=== PATIENT | male | born 1965 | race Caucasian/White ===

== ENCOUNTER 2016-12-02 11:45 | Inpatient (IN) | payer OTHER ==
[2016-12-02 12:16] LABS: ABSOLUTE EOSINOPHILS # (AUTO) 0.1 10^3/uL (0.0-0.6); ABSOLUTE LYMPHOCYTES (AUTO) 1.9 10^3/uL (0.5-4.7); ABSOLUTE MONOCYTES (AUTO) 0.5 10^3/uL (0.1-1.4); ABSOLUTE NEUT (AUTO) 4.5 10^3/uL (1.7-8.2); BASOPHILS % (AUTO) 0.6 % (0-2); EOSINOPHILS % (AUTO) 1.7 % (0-6); HEMATOCRIT 42.2 % (37.9-51.0); HEMOGLOBIN 14.2 g/dL (13.5-17.0); HGB HCT DIFFERENCE 0.4; LYMPHOCYTES % (AUTO) 26.7 % (13-45); MEAN CORPUSCULAR HEMOGLOBIN 31.6 pg (27.0-33.4); MEAN CORPUSCULAR HGB CONC 33.6 g/dL (32.0-36.0); MEAN CORPUSCULAR VOLUME 94 fl (80-97); MONOCYTES % (AUTO) 6.7 % (3-13); RED BLOOD COUNT 4.47 10^6/uL (4.35-5.55); RED CELL DISTRIBUTION WIDTH 13.5 % (11.5-14.0); SEGMENTED NEUTROPHILS % (AUTO) 64.3 % (42-78)
[2016-12-02 12:25] LABS: PARTIAL THROMBOPLASTIN TIME 23.5 SEC (23.5-35.8)
[2016-12-02 12:38] LABS: ALCOHOL 22 mg/dL (NONE DETECTED); ANION GAP 9 (5-19); BLOOD UREA NITROGEN 14 mg/dL (7-20); CALCIUM 8.3 mg/dL (8.4-10.2); CARBON DIOXIDE 23 mmol/L (22-30); CHLORIDE 113 mmol/L (98-107); CREATININE RESULT 0.92 mg/dL (0.52-1.25); GLUCOSE 108 mg/dL (75-110); POTASSIUM 4.7 mmol/L (3.6-5.0); SODIUM 144.7 mmol/L (137-145)
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
[2016-12-02] MEDS ORDERED: KETAMINE HCL INJ 500 MG/10 ML VIAL IV ONE (13:36)
[2016-12-02] MEDS ORDERED: MIDAZOLAM 2 MG/2 ML INJ IV ONE (13:36)
[2016-12-02] MEDS ORDERED: HYDROMORPHONE HCL INJ/PF 2 MG/ML AMPULE IV ONE (13:48)
[2016-12-02] MEDS ORDERED: NORMAL SALINE 1000 ML 1,000 ML IV ONE (13:48)
[2016-12-02] MEDS ORDERED: ONDANSETRON HCL INJ/PF 4 MG/2 ML SDV IV ONE (13:48)
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
[2016-12-02] MEDS ORDERED: GLUCAGON,HUMAN RECOMB 1 MG INJ SUBCUT PRN (14:51)
[2016-12-02] MEDS ORDERED: DEXTROSE 40% GEL 15 GM TUBE PO PRN ×2 (14:51)
[2016-12-02] MEDS ORDERED: DEXTROSE 50%-WATER 25 GM/50 ML DISP.SYRIN IV PRN ×2 (14:51)
[2016-12-02] MEDS ORDERED: ONDANSETRON HCL INJ/PF 4 MG/2 ML SDV IV PRN (14:55)
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
[2016-12-02] MEDS: OXYCODONE-ACETAMINOPHEN 5-325 MG TABLET PO PRN ×2 (16:06→22:25)
[2016-12-02] MEDS: MORPHINE SULFATE 10 MG/ML INJ IV PRN (20:09)
[2016-12-03] MEDS: MORPHINE SULFATE 10 MG/ML INJ IV PRN ×3 (02:46→19:36)
[2016-12-03] MEDS: OXYCODONE-ACETAMINOPHEN 5-325 MG TABLET PO PRN ×2 (05:40→20:21)
[2016-12-03 06:34] LABS: ABSOLUTE BASOPHILS # (AUTO) 0.1 10^3/uL (0.0-0.2); ABSOLUTE EOSINOPHILS # (AUTO) 0.1 10^3/uL (0.0-0.6); ABSOLUTE LYMPHOCYTES (AUTO) 3.4 10^3/uL (0.5-4.7); ABSOLUTE MONOCYTES (AUTO) 1.2 10^3/uL (0.1-1.4); ABSOLUTE NEUT (AUTO) 5.4 10^3/uL (1.7-8.2); BASOPHILS % (AUTO) 0.6 % (0-2); EOSINOPHILS % (AUTO) 1.4 % (0-6); HEMATOCRIT 39.2 % (37.9-51.0); HEMOGLOBIN 13.3 g/dL (13.5-17.0); HGB HCT DIFFERENCE 0.7; LYMPHOCYTES % (AUTO) 32.9 % (13-45); MEAN CORPUSCULAR HEMOGLOBIN 31.9 pg (27.0-33.4); MEAN CORPUSCULAR VOLUME 94 fl (80-97); MONOCYTES % (AUTO) 11.7 % (3-13); RED BLOOD COUNT 4.17 10^6/uL (4.35-5.55); RED CELL DISTRIBUTION WIDTH 13.3 % (11.5-14.0); SEGMENTED NEUTROPHILS % (AUTO) 53.4 % (42-78); WHITE BLOOD COUNT 10.2 10^3/uL (4.0-10.5)
[2016-12-03 06:48] LABS: ANION GAP 10 (5-19); BLOOD UREA NITROGEN 12 mg/dL (7-20); CALCIUM 8.8 mg/dL (8.4-10.2); CARBON DIOXIDE 25 mmol/L (22-30); CHLORIDE 106 mmol/L (98-107); CREATININE RESULT 0.89 mg/dL (0.52-1.25); GLUCOSE 104 mg/dL (75-110); POTASSIUM 4.4 mmol/L (3.6-5.0); SODIUM 141.1 mmol/L (137-145)
[2016-12-03] MEDS ORDERED: FENTANYL CITRATE INJ/PF 250 MCG/5 ML AMPULE ONE (07:46)
[2016-12-03] MEDS ORDERED: PROPOFOL INJ 200 MG/20 ML VIAL IV ONE (07:46)
[2016-12-03] MEDS ORDERED: MIDAZOLAM 2 MG/2 ML INJ ONE (07:46)
[2016-12-03] MEDS ORDERED: IBUPROFEN INJ 800 MG/8 ML VIAL IV ONE (07:46)
[2016-12-03] MEDS ORDERED: ONDANSETRON HCL INJ/PF 4 MG/2 ML SDV ONE (07:46)
[2016-12-03] MEDS ORDERED: DEXAMETHASONE SOD PHOSPHATE INJ 4 MG/1 ML VIAL ONE (07:46)
[2016-12-03] MEDS ORDERED: MORPHINE SULFATE 10 MG/ML INJ ONE (07:47)
[2016-12-03] MEDS ORDERED: CEFAZOLIN 2 GM/D5W RTU 2 GM/50 ML RTUPB IV PRN (08:00)
[2016-12-03] MEDS ORDERED: CEFAZOLIN INJ 1 GM VIAL ONE (08:01)
[2016-12-03] MEDS ORDERED: OXYCODONE-ACETAMINOPHEN 5-325 MG TABLET PO PRN ×2 (08:42)
[2016-12-03] MEDS ORDERED: ONDANSETRON HCL INJ/PF 4 MG/2 ML SDV IV PRN (08:42)
[2016-12-03] MEDS ORDERED: PROMETHAZINE HCL INJ 25 MG/1 ML VIAL IV PRN ×2 (08:42)
[2016-12-03] MEDS ORDERED: DIPHENHYDRAMINE HCL 50 MG/ML VIAL IV PRN (08:42)
[2016-12-03] MEDS ORDERED: MORPHINE SULFATE 10 MG/ML INJ IV PRN (08:42)
[2016-12-03] MEDS ORDERED: FENTANYL CITRATE INJ/PF 100 MCG/2 ML AMPUL IV PRN ×3 (08:42)
[2016-12-03] MEDS ORDERED: MEPERIDINE HCL/PF INJ 25 MG/1 ML DISP.SYRIN IV PRN (08:42)
[2016-12-03] MEDS ORDERED: ROCURONIUM BROMIDE INJ 50 MG/5 ML VIAL IV ONE (10:00)
[2016-12-03] MEDS ORDERED: SUCCINYLCHOLINE CHLORIDE INJ 200 MG/10 ML VIAL ONE (10:00)
[2016-12-03] MEDS ORDERED: KETOROLAC TROMETHAMINE INJ/PF 30 MG/1 ML SDV IV PRN (11:26)
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
[2016-12-03] MEDS: RINGERS SOLUTION,LACTATED 1,000 ML IV PRN (15:16)
[2016-12-03] MEDS: RIVAROXABAN 10 MG TABLET PO SCH (16:58)
[2016-12-03] MEDS: ZOLPIDEM TARTRATE 5 MG TABLET PO SCH ×2 (21:16)
[2016-12-04] MEDS: MORPHINE SULFATE 10 MG/ML INJ IV PRN (01:46)
[2016-12-04] MEDS: OXYCODONE-ACETAMINOPHEN 5-325 MG TABLET PO PRN ×2 (04:41→15:51)
[2016-12-04] MEDS: RINGERS SOLUTION,LACTATED 1,000 ML IV PRN (05:27)
--- NOTE | 2016-12-04 08:03 | PDOC PROGRESS REPORT ---
Subjective Progress Note for:: 12/04/16 Subjective:: Patient seen and evaluated this morning. Did have an episode of pain last evening but once he laid down elevated the ankle is pain significantly improved. Pain has been controlled with Percocet and morphine. Denies numbness or tingling. Physical Exam Vital Signs: Temp Pulse Resp BP Pulse Ox 98.3 F 81 15 148/86 H 98 12/04/16 03:24 12/04/16 03:24 12/04/16 03:24 12/04/16 03:24 12/04/16 03:24 Intake & Output 12/03/16 12/04/16 12/05/16 06:59 06:59 06:59 Intake Total 2090 3890 Output Total 1000 4520 Balance 1090 -630 Weight 86 kg 86 kg Musculoskeletal exam: PRESENT: other - Right lower extremity: Dressing clean/dry /intact. Compartments soft and compressible no sign of compartment syndrome. No pain with passive stretch. Capillary refill less than 2 seconds. No sensory deficits. Intact flexion extension of the toes. Results Laboratory Results: 12/03/16 05:39 12/03/16 05:39 Impressions: Ribs w/Chest X-Ray 12/02/16 11:54 IMPRESSION: NO PNEUMOTHORAX. POSSIBLE NONDISPLACED FRACTURE RIGHT POSTEROLATERAL 8TH RIB. Tibia/Fibula X-Ray 12/02/16 11:54 IMPRESSION: DISTAL TIBIA AND FIBULAR FRACTURES ABOVE. Ankle X-Ray 12/03/16 00:00 IMPRESSION: IMAGE(S) OBTAINED DURING PROCEDURE. Fluoroscopy 12/03/16 00:00 IMPRESSION: IMAGE(S) OBTAINED DURING PROCEDURE. Assessment & Plan - Diagnosis (1) Closed fibular fracture Qualifiers: Encounter type: initial encounter Fibula location: distal Fracture morphology: unspecified fracture morphology Laterality: right Qualified Code(s): S82.831A - Other fracture of upper and lower end of right fibula, initial encounter for closed fracture Is this a current diagnosis for this admission?: Yes (2) Spiral fracture of shaft of tibia Qualifiers: Encounter type: subsequent encounter Fracture type: closed Fracture alignment: displaced Laterality: right Qualified Code(s): S82.241A - Displaced spiral fracture of shaft of right tibia, initial encounter for closed fracture Is this a current diagnosis for this admission?: YesPlan: Status post IM nail right distal tibia fracture, ORIF distal fibula #1 pain control with Percocet will wean him off the morphine. #2. Xarelto for DVT prophylaxis #3 physical therapy nonweightbearing #4 depending on how patient progresses in therapy will consider possible discharge home today versus tomorrow.
--- NOTE | 2016-12-04 09:56 | EKG REPORT ---
SEVERITY:- BORDERLINE ECG - SINUS RHYTHM BORDERLINE INFERIOR Q WAVES : Confirmed by: Braydon Colon 04-Dec-2016 09:55:02
[2016-12-04 17:22] VITALS: BP 151/89
[2016-12-04] MEDS: RIVAROXABAN 10 MG TABLET PO SCH (18:18)
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
== END 2016-12-04 18:15 | disposition home or self-care (01) | DRG 494 ==
LOC: ER 11:45 → EH 14:12 → UNDOADMIN 14:12 → EH 14:51 → 4N 15:31
PROVIDERS: ADMIT Orthopaedic Surgery; ATTEND Orthopaedic Surgery
PROC: 0QSJ04Z Reposition Right Fibula with Internal Fixation Device, Open Approach (ICD-10-PCS; principal; 2016-12-03 08:00)
PROC: 0QSG36Z Reposition Right Tibia with Intramedullary Internal Fixation Device, Percutaneous Approach (ICD-10-PCS; 2016-12-03 08:00)
DX: S82.241A Displaced spiral fracture of shaft of right tibia, initial encounter for closed fracture (principal); S82.441A Displaced spiral fracture of shaft of right fibula, initial encounter for closed fracture; V29.9XXA Motorcycle rider (driver) (passenger) injured in unspecified traffic accident, initial encounter; Y93.89 Activity, other specified; Y92.410 Unspecified street and highway as the place of occurrence of the external cause; Y99.8 Other external cause status
CPT/HCPCS: 01480; 36415; 80048; 80307; 85025; 85610; 85730; 86850; 86900; 86901; 93005; 93010; 96374; 96375; 99284; C1713; C1769; C1898; J0330; J0690; J1100; J1170; J1741; J1885; J2250; J2270; J2405; J2704; J3010; J3490; J7030; J7120